=== PATIENT | male | born 1945 | race Caucasian/White ===

== ENCOUNTER 2016-10-23 15:48 | Emergency (ER) | payer MEDICARE ==
[~2016-10-23] VITALS: Ht 172.7 cm; Wt 90.7 kg
[2016-10-23 17:56] VITALS: BP 115/65
== END 2016-10-23 17:56 | disposition home or self-care (01) ==
LOC: ED 15:48
DX: S06.0X1A Concussion with loss of consciousness of 30 minutes or less, initial encounter (principal); R41.2 Retrograde amnesia; I10 Essential (primary) hypertension; E11.9 Type 2 diabetes mellitus without complications; I25.10 Atherosclerotic heart disease of native coronary artery without angina pectoris; Z79.82 Long term (current) use of aspirin; Z79.84 Long term (current) use of oral hypoglycemic drugs; Z79.899 Other long term (current) drug therapy; Z94.1 Heart transplant status; W01.0XXA Fall on same level from slipping, tripping and stumbling without subsequent striking against object, initial encounter; Y93.89 Activity, other specified; Y92.89 Other specified places as the place of occurrence of the external cause; Y99.8 Other external cause status
CPT/HCPCS: 90715

== ENCOUNTER 2017-03-10 16:57 | Emergency (ER) | payer MEDICARE ==
[~2017-03-10] VITALS: Ht 172.7 cm; Wt 92.5 kg
[2017-03-10 17:08] VITALS: BP 159/74; Ht 172.7 cm; Wt 92.5 kg
== END 2017-03-10 18:16 | disposition home or self-care (01) ==
LOC: ED 16:57
DX: S01.111A Laceration without foreign body of right eyelid and periocular area, initial encounter (principal); S05.91XA Unspecified injury of right eye and orbit, initial encounter; E11.9 Type 2 diabetes mellitus without complications; Z94.1 Heart transplant status; W01.0XXA Fall on same level from slipping, tripping and stumbling without subsequent striking against object, initial encounter; Y93.89 Activity, other specified; Y92.89 Other specified places as the place of occurrence of the external cause; Y99.8 Other external cause status
CPT/HCPCS: J2001

== ENCOUNTER 2017-03-16 10:56 | Emergency (ER) | payer MEDICARE ==
[~2017-03-16] VITALS: Ht 172.7 cm; Wt 93.0 kg
[2017-03-16 11:10] VITALS: BP 115/65; Ht 172.7 cm; Wt 93.0 kg
== END 2017-03-16 11:35 | disposition home or self-care (01) ==
LOC: ED 10:56
DX: S01.81XD Laceration without foreign body of other part of head, subsequent encounter (principal); E11.9 Type 2 diabetes mellitus without complications; Z48.21 Encounter for aftercare following heart transplant; X58.XXXD Exposure to other specified factors, subsequent encounter

== ENCOUNTER 2017-05-14 21:10 | Emergency (ER) | payer MEDICARE ==
[~2017-05-14] VITALS: Ht 177.8 cm; Wt 93.0 kg
[2017-05-14 21:15] VITALS: Ht 177.8 cm; Wt 93.0 kg
[2017-05-14 22:14] VITALS: BP 137/98
== END 2017-05-14 22:15 | disposition home or self-care (01) ==
LOC: ED 21:10
DX: B02.9 Zoster without complications (principal); E11.9 Type 2 diabetes mellitus without complications
CPT/HCPCS: Q0092